=== PATIENT | female | born 1965 | race African-American/Black ===

== ENCOUNTER 2020-08-27 14:57 | Outpatient (CLI) | payer OTHER ==
--- NOTE | 2020-08-27 15:28 | RAD ---
EXAM: Chest PA and lateral: HISTORY: Disability evaluation. COMPARISON: 08/19/2018 FINDINGS: Heart: Normal cardiac silhouette Aorta: Unremarkable Pulmonary vessels: Normal Costophrenic angles: Costophrenic angles are clear. Lungs: No consolidation or masses. Pneumothorax: No pneumothorax Osseous structures: No osseous abnormalities IMPRESSION: No acute cardiopulmonary process.
--- NOTE | 2020-08-27 15:29 | RAD ---
Exam:Left wrist 2 view HISTORY: Disability evaluation COMPARISON: None FINDINGS: Limited evaluation the articulation of the hamate bone with the respective fourth and fifth metacarpal. Limited evaluation of the capitate bone with the third metacarpal. Intercarpal and radiocarpal joint spaces are preserved. No fracture. IMPRESSION: 1. No fracture 2. Limited evaluation of the articulation of the carpal bones and the associated metacarpals. Additio nal imaging as clinically warranted.
== END 2020-08-27 14:58 | disposition home or self-care (01) ==
LOC: BICRAD 14:57
PROVIDERS: ATTEND Internal Medicine
DX: Z02.71 Encounter for disability determination (principal)
CPT/HCPCS: 71046